=== PATIENT | male | born 1955 | race Caucasian/White ===

== ENCOUNTER 2019-06-02 09:38 | Day surgery (SDC) ==
--- NOTE | 2019-05-28 08:02 | EKG Report ---
Test Performed on : 05/28/2019 07:39:50 AM Test Reason : PAT Blood Pressure : / mmHG Vent. Rate : 075 BPM Atrial Rate : 075 BPM P-R Int : 202 ms QRS Dur : 092 ms QT Int : 386 ms P-R-T Axes : 060 069 069 degrees QTc Int : 431 ms Normal sinus rhythm. Normal ECG When compared with ECG of 03-JAN-2009 16:43, No significant change was found Confirmed by Liz TRIPATHI, Alejandro Silverman ([id number]) on 05/29/2019 7:41:22 AM
[2019-05-28 08:28] LABS: URINE SOURCE CLEAN CATCH
[2019-05-28 09:19] LABS: BASO# 0.02 X1000 (0.0-0.2); BASO% 0.3 % (0.0-0.8); EOS# 0.11 X1000 (0.0-0.7); EOS% 1.8 % (0.0-10.0); HEMATOCRIT 48.6 % (42.0-52.0); HEMOGLOBIN 15.8 g/dL (14.0-18.0); LYMPH# 1.94 X1000 (1.2-3.4); MCH 31.4 PG (27-31); MCHC 32.5 g/dL (33-37); MCV 96.6 FL (81-99); MONO# 0.53 X1000 (0.11-0.59); MONO% 8.7 % (1.7-9.3); MPV 11.4 FL (7.4-10.4); NEUT# 3.46 X1000 (1.4-6.5); NEUT% 57.2 % (42.2-75.2); PLT 164 X1000 (130-400); RBC 5.03 XMIL (4.7-6.1); RDW 13.4 % (11.5-14.5); WBC 6.06 X1000 (4.8-10.8)
[2019-05-28 09:27] LABS: BILIRUBIN URINE NEGATIVE (NEGATIVE); BLOOD URINE NEGATIVE (NEGATIVE); COLOR YELLOW; GLUCOSE URINE NEGATIVE (NEGATIVE); KETONE URINE NEGATIVE (NEGATIVE); LEUKOCYTES URINE NEGATIVE (NEGATIVE); NITRITE URINE NEGATIVE (NEGATIVE); PROTEIN URINE NEGATIVE (NEGATIVE); SP GRAVITY URINE 1.026; TURBIDITY URINE CLEAR (CLEAR); UROBILINOGEN URINE NORMAL (NORMAL)
[2019-05-28 09:31] LABS: UR EPITHELIAL CELLS <10 /HPF (<10); URINE BACTERIA NEGATIVE /HPF; URINE RBC <10 /HPF (<10); URINE WBC <10 /HPF (<10)
[2019-05-28 09:35] LABS: ALBUMIN 4.5 g/dL (3.5-5.0); CALCIUM 8.9 mg/dL (8.8-10.2); CREATININE 1.3 mg/dL (0.7-1.2); POTASSIUM 4.4 mmol/L (3.5-5.1)
[2019-05-28 09:43] LABS: HEMOGLOBIN A1C 5.8 % (4.8-6.0)
[2019-05-28 09:46] LABS: INR 0.98; PROTIME 13.1 Seconds (11.0-16.0)
[2019-05-28 09:47] LABS: PTT 29.3 Seconds (22.3-41.8)
[~2019-06-02 09:38] MED LIST: DIPRIVAN 1% ONE; FENTANYL ONE; ROBINUL ONE; VERSED ONE; XYLOCAINE-MPF 2% ONE
[2019-06-02] MEDS ORDERED: COLACE ONE (10:34)
[2019-06-02] MEDS ORDERED: PEPCID ONE (10:34)
[2019-06-02] MEDS ORDERED: LYRICA ONE (10:35)
[2019-06-02] MEDS ORDERED: KEFZOL 1 GM/D5W 2 GM/100 ML IVPB ONE (10:35)
[2019-06-02] MEDS ORDERED: REGLAN ONE (10:35)
[2019-06-02] MEDS ORDERED: CELEBREX ONE (10:35)
[2019-06-02] MEDS ORDERED: LR 1,000 ML ONE (10:36)
[2019-06-02] MEDS ORDERED: DURAMORPH ONE (11:32)
[2019-06-02] MEDS ORDERED: TORADOL ONE ×2 (11:32→12:18)
[2019-06-02] MEDS ORDERED: SODIUM CHLORIDE 0.9% ONE (11:32)
[2019-06-02] MEDS ORDERED: MARCAINE 0.25% PF ONE (11:32)
[2019-06-02] MEDS ORDERED: EXPAREL 1.3% ONE (11:33)
[2019-06-02] MEDS ORDERED: OXYCONTIN PO ONE (11:43)
[2019-06-02] MEDS: VANCOMYCIN ONE ×2 (11:59→14:07)
[2019-06-02] MEDS ORDERED: DECADRON ONE (12:18)
[2019-06-02] MEDS ORDERED: OFIRMEV 1000 MG/ISOTONIC SOLN 1,000 MG/100 ML BOTTLE ONE (12:18)
[2019-06-02] MEDS: CYKLOKAPRON 1,000 MG/NS 2,000 MG/200 ML IVPB ONE ×2 (12:20→14:00)
[2019-06-02] MEDS ORDERED: XYLOCAINE-MPF 2% ONE (13:13)
[2019-06-02] MEDS ORDERED: DIPRIVAN 1% ONE ×3 (13:13→14:19)
[2019-06-02] MEDS ORDERED: VERSED ONE (13:19)
[2019-06-02] MEDS ORDERED: ZOFRAN PO PRN (15:11)
[2019-06-02] MEDS ORDERED: OXY IR PO PRN (15:11)
[2019-06-02] MEDS ORDERED: MILK OF MAGNESIA PO PRN (15:11)
[2019-06-02] MEDS ORDERED: MORPHINE IV PRN (15:11)
[2019-06-02] MEDS ORDERED: VANCOMYCIN 1 GM/NS 1 GM/250 ML IVPB IV ONE (15:11)
[2019-06-02] MEDS ORDERED: ZOFRAN IV PRN (15:11)
[2019-06-02] MEDS ORDERED: KEFZOL 1 GM/D5W 1 GM/50 ML IVPB IV SCH (15:15)
[2019-06-02 15:50] LABS: URINE SOURCE CATH
--- NOTE | 2019-06-02 15:54 | Diag Imaging Result Doc PS360 ---
KNEE 3 VIEWS RIGHT - 06/02/2019 INDICATION: Postop TECHNIQUE: Three views COMPARISON: None FINDINGS: There has been right total knee arthroplasty. Alignment is anatomic. No hardware fracture or loosening. IMPRESSION: No complication. Electronically signed by Jin Najera 06/02/2019 3:51 PM
[2019-06-02 15:59] LABS: BILIRUBIN URINE NEGATIVE (NEGATIVE); BLOOD URINE NEGATIVE (NEGATIVE); COLOR YELLOW; GLUCOSE URINE NEGATIVE (NEGATIVE); KETONE URINE NEGATIVE (NEGATIVE); LEUKOCYTES URINE NEGATIVE (NEGATIVE); NITRITE URINE NEGATIVE (NEGATIVE); PROTEIN URINE NEGATIVE (NEGATIVE); SP GRAVITY URINE 1.016; TURBIDITY URINE CLEAR (CLEAR); UROBILINOGEN URINE NORMAL (NORMAL)
[2019-06-02] MEDS ORDERED: NS 1,000 ML IV SCH (16:00)
[2019-06-02 16:01] LABS: UR EPITHELIAL CELLS <10 /HPF (<10); URINE BACTERIA NEGATIVE /HPF; URINE RBC <10 /HPF (<10); URINE WBC <10 /HPF (<10)
[2019-06-02] MEDS ORDERED: EXENATIDE MICROSPHERES INJ SCH (16:30)
[2019-06-02] MEDS: TYLENOL PO SCH ×2 (17:29→18:40)
[2019-06-02] MEDS: OXY IR PO PRN (17:29)
--- NOTE | 2019-06-02 19:26 | OPERATIVE NOTE ---
PROCEDURE DATE: 06/02/2019 PREOPERATIVE DIAGNOSIS: Right knee osteoarthritis. POSTOPERATIVE DIAGNOSIS: Right knee osteoarthritis. PROCEDURE: Right total knee arthroplasty. SURGEON: Dr. Frank Jason. DIP GUIDER STOVES: 1. Tony Martinez, Nurse practitioner, whose help was necessary for retraction and placement of implants. 2. Slick Godinez RN. ANESTHESIA: Spinal. COMPLICATIONS: None. SPECIMENS: None. DRAINS: None. BLOOD LOSS: 30 mL. IMPLANTS: Nona Persona total knee arthroplasty system, with a size 10 cemented cruciate retaining femur, a size G right cemented tibial base plate, with a 10 mm cruciate retaining polyethylene liner and a 35 mm patella. INDICATIONS FOR PROCEDURE: Mr. Faust is a 63-year-old gentleman who has been seen and followed in clinic for complaints of right knee pain. He tried and failed conservative modalities and wished to proceed with total joint arthroplasty. Risks, benefits, and alternative therapies were discussed with patient regarding surgery. Risks of surgery include, but are not limited to, risks of bleeding, infection, damage to nerves and vessels around the area, continued pain following surgery, and need for revision surgery. There is also risk of anesthesia, including blood clot, stroke, heart attack, even . Patient understands these risks. All questions were answered. Informed consent was obtained. PROCEDURE IN DETAIL: Mr. Faust was identified by wrist band and greeted in preop holding area on 06/02/2019. His right lower extremity, which was the operative site, was marked with indelible ink per [facility] protocol. Following this, the patient was transferred back to the operating room for surgery. Upon entering the OR, he was transferred in supine position on the Skytron table. All bony prominences were well padded. Spinal anesthetic was then introduced. At this time, the patient was then placed into the supine position. Again, all bony problems were well padded. The right lower extremity was 'then prepped and draped in routine sterile fashion. Formal time-out was performed, confirming correct patient, procedure, operative site, operative side, administration of perioperative antibiotics. Everyone was in agreement. The patient received 2 g Ancef prior to incision. He also received 1 g of tranexamic acid prior to incision. Esmarch was used to exsanguinate the right lower extremity and tourniquet was elevated to 300 mmHg. Total tourniquet time was 85 minutes. Once this was done, a 10 blade knife was used to make a standard longitudinal midline incision over the knee. Knife was used to dissect through skin and subcutaneous tissue down to patellar retinaculum. Fat overlying the quad tendon and vastus medialis obliquus was incised so that the muscle belly of VMO and quad tendon were visualized. Once full-thickness skin flaps were developed, we then made our medial parapatellar arthrotomy with the 10 blade knife, going about 4 mm lateral to the medial edge of the quad tendon. After we made our arthrotomy, a knife was used to remove the patellar fat pad as well as release the lateral plica bands. A partial medial release was used, taking superficial MCL off along the joint line around to the midline of the tibia medially. Once this was done, we then everted the patella and flexed the knee up. A right angle retractor was placed in the medial compartment, retracting VMO and medial patellar retinaculum off the femoral condyle. A Hohmann retractor was then placed laterally. At this time, we had good exposure of the distal femur. A knife was used to remove the visible areas of the medial and lateral menisci as well as cut the ACL. At this time, we then used a big drill to enter the femoral canal in line with Whitesides line. The intramedullary distal femoral cutting guide was then placed, making sure it was set on the right knee, 5 degrees valgus, 10 mm resection. Once we were satisfied with position of this, it was then pinned in place and we made our distal femoral cut in routine fashion. Following this, the posterior referencing AP sizing guide was then placed. A marking pen was first used to draw the transepicondylar axis as well as Whitesides line. We then placed the AP sizing guide, making sure it was set to 3 degrees external rotation. Drill holes were then placed in the appropriate position. The femur measured to be a size 10. A size 10 all-in-one cutting block was then impacted into position. An Cedric wing was used to make sure no notching would take place. We then proceeded with making our distal femoral cuts, starting with the anterior and posterior condylar cuts followed by anterior and posterior chamfer cuts. Once this done, all-in-one cutting block was removed and osteotome was used to remove all bony fragments. At this time, we then turned our attention to the tibia. The extramedullary tibial cutting guide was placed around the malleoli of the ankle and the block was placed, taking 2 mm off the more affected medial side. Once this was done, it was then pinned in position. Drop za was used to ensure alignment of the cut, making sure that it lined with the tibialis anterior and the 2nd metatarsal. When we were satisfied with our cut, again it was pinned in position and our plateau cut was made. The knee was then brought into full extension and an extension block was placed. It was found to have significant tightness, so we went ahead and took an additional 4 mm off the tibia. Once this done, we then checked our flexion and extension gaps with the blocks in routine fashion. The knee was found to be pretty well balanced at this point. We did do a small PCL release off the lateral aspect of the medial femoral condyle as it had a small amount of tightness in flexion. Once this was done, we then used the tibial sizing guide and it was found to be a size G. Our size 10 femoral trial was impacted into position on the femur. Prior to placement of our femoral trial, a 3/4 inch curved osteotome was used to remove posterior condylar osteophytes off the femur. A rongeur and curette were then used to remove these. At this time, we then placed our femoral trial followed by placement of the tibial base plate and a 10 mm tibial poly, which were left in free float in order to switch box installer our rotation. The knee was then brought into full extension. The knee was found to come into full extension and had good stability on both varus and valgus stress in extension as well as 90 degrees of flexion. The PCL was found to be competent. At this time, we then turned our attention to the patella. Patella was measured and found to be 25 mm thick. The patellar clamp was then placed, taking 9 mm off the articular surface. Our cut was then made and a button trial was placed. We again measured this and it was found to be 25 mm, ensuring we did not overstuff the patella. At this time, patellar tracking was checked and found to track appropriately. We then used a Bovie to andriy our rotation of our tibial component. The femoral and patellar components were then removed, and our size D tibial trial was pinned into position. We then used the large reamer followed by the fin punch to lock in the rotation of our tibia. At this time, all trial components were removed. The knee was copiously irrigated with normal saline. 30 mL of our Exparel plus Toradol plus Duramorph and epinephrine injection was then injected into the posterior capsule, making sure to aspirate prior to injection in each position. Once this was done, Bovie was used to cauterize the posterior capsule as well as lateral geniculates. We then proceeded with irrigating all bone ends. Dry laps were then placed. At this time, all final implants were opened on the back table. Cement was mixed. We used BiomCytoSolv cement x2 batches with 1 g of vancomycin added. Once the cement was ready, we then proceeded with cementing of our implants, starting with our tibial base plate, followed by placement of the femur and 11 mm trial poly and lastly the patella. The cement was then allowed to set up. Two dry laps were placed in the knee and an Esmarch was used to wrap around the knee for compression. Tourniquet was then deflated once cement had hardened. Bovie was then used to obtain hemostasis. We had no obvious active bleeding. At this time, the knee was then again taken through range of motion. We took out the 1 mm rafa so that it was a size 10 poly and found to have full extension and good stability to varus and valgus stress, with no obvious mid flexion instability. We thus opened a final 10 mm cruciate retaining polyethylene liner. It was then impacted in position in routine fashion. Following this, we then injected the remaining 30 mL of Exparel cocktail around the anterior, medial, and lateral capsule. Our superficial skin injection was then injected in the subcutaneous tissue. At this time, the knee was again copiously irrigated with normal saline. There was no active bleeding, so a drain was not placed. We then proceeded with closure of arthrotomy site using #1 Vicryl suture,, followed by a V-Loc running Quill suture. The knee was taken through a range of motion, ensuring a good stable closure with no impingement. Patient had full motion from 0 to about 155 degrees of flexion. A 2-0 Vicryl suture was then used for subcutaneous tissue closure, followed by 4-0 Monocryl for skin closure. Dermabond Prineo dressing was then applied and allowed to dry. At this time, drapes were taken down. The patient was placed into a 4x4, ABD, sterile Webril, and Simeon wrap dressing from the foot up to the thigh. At this time, he was then woken up, transferred to his hospital stretcher, and taken to Recovery in stable condition. There were no acute complications during the procedure. All sponge and sharp counts were correct at the end of the procedure.
[2019-06-02] MEDS: KEFZOL 2 GM/D5W 2 GM/50 ML IVPB IV SCH (20:17)
[2019-06-02] MEDS: CELEBREX PO SCH (20:19)
[2019-06-02] MEDS: COLACE PO SCH (20:20)
[2019-06-02] MEDS: LYRICA PO SCH (20:20)
[2019-06-02] MEDS: PERIDEX MT SCH (20:20)
[2019-06-02] MEDS ORDERED: RESTORIL PO SCH (21:00)
[2019-06-02] MEDS ORDERED: GLUCOPHAGE XR PO SCH (21:00)
[2019-06-02] MEDS ORDERED: JANUVIA PO SCH (21:00)
[2019-06-02] MEDS ORDERED: PRINIVIL PO SCH (21:00)
[2019-06-03] MEDS: KEFZOL 2 GM/D5W 2 GM/50 ML IVPB IV SCH (04:26)
[2019-06-03] MEDS: TYLENOL PO SCH ×2 (06:34→06:48)
[2019-06-03 06:36] LABS: HEMATOCRIT 43.5 % (42.0-52.0); HEMOGLOBIN 14.9 g/dL (14.0-18.0)
[2019-06-03] MEDS: OXY IR PO PRN (06:48)
[2019-06-03 07:10] LABS: CREATININE 1.3 mg/dL (0.7-1.2); POTASSIUM 4.7 mmol/L (3.5-5.1)
[2019-06-03 07:57] VITALS: BP 109/60
[2019-06-03] MEDS ORDERED: DECADRON IV ONE (09:00)
[2019-06-03] MEDS ORDERED: ASPIRIN PO SCH (09:00)
[2019-06-03] MEDS ORDERED: PEPCID PO SCH (09:00)
[2019-06-03] MEDS ORDERED: ZYLOPRIM PO SCH (09:00)
[2019-06-03] MEDS ORDERED: CELEBREX PO SCH (09:00)
[2019-06-03] MEDS: CELEBREX PO SCH (11:43)
[2019-06-03] MEDS: COLACE PO SCH (11:43)
[2019-06-03] MEDS: PERIDEX MT SCH (11:43)
[2019-06-03] MEDS: LYRICA PO SCH (11:44)
--- NOTE | 2019-06-03 11:51 | ORTHOPAEDICS PROGRESS NOTE ---
DATE: 06/03/2019 SUBJECTIVE: No acute events overnight. Patient denies any pain in his knee. He is tolerating a diet. He got a good night's sleep. He has no complaints at this time. He is ready to work with physical therapy and go home. OBJECTIVE: Hematocrit 44. Sodium 136, potassium 4.7, chloride 101, carbon dioxide 21, BUN 29, creatinine 1.3, glucose 162.Extremities: Examination of right lower extremity shows surgical dressing to be clean, dry, and intact. Thigh and calf were soft and compressible. The patient is able to do straight leg raise and actively flex and extend his knee. Motor is intact. EHL, tibialis anterior, gastrocsoleus complex. Sensation intact to light touch L3-S1. Dorsalis pedis pulse palpable. IMAGING: AP and lateral of the right knee taken postoperatively in the PACU were reviewed demonstrating good position of implants and good alignment of the knee. The patient has retention of loose body that was encapsulated in the posterior capsule. ASSESSMENT: A 63-year-old male status post right total knee arthroplasty. Postoperative day 1. PLAN: 1. Patient will be weightbearing as tolerated right lower extremity. He should ambulate with Physical Therapy today with a rolling walker. 2. Aspirin 81 mg b.i.d. for DVT prophylaxis for the next 6 weeks. The patient will also wear GERBER hose during the day for the next 4 to 6 weeks. 3. Discontinue Mays catheter. 4. Pain control. 5. Disposition. Patient to be discharged home this afternoon after he meets physical therapy goals as long as he is urinating, tolerating a diet. His pain is well controlled on p.o. pain medication. I will see him back in clinic at [facility] in 2 weeks. We will get him started with outpatient physical therapy to be done at [facility] starting tomorrow. The patient is okay to take a shower tomorrow.
--- NOTE | 2019-06-06 05:33 | DISCHARGE SUMMARY ---
ADMISSION DATE: 06/02/2019 DISCHARGE DATE: 06/03/2019 ADMISSION DIAGNOSES: Right knee osteoarthritis. DISCHARGE DIAGNOSES: Right knee osteoarthritis. PROCEDURES PERFORMED: Right total knee arthroplasty done on 06/02/2019. CONSULTATIONS: None. COMPLICATIONS: None. BRIEF HOSPITAL COURSE: Mr. Faust is a 63-year-old gentleman who has been followed in clinic for complaints of right knee osteoarthritis. At the time, he failed conservative treatment modalities, and wished to proceed with total joint replacement. Risks, benefits, and alternative therapies were discussed with patient regarding surgery. All questions were answered. Informed consent was obtained. Patient presented to [facility] on 06/02/2019, undergoing the above procedure. There were no acute complications during surgery. Following surgery, he was transferred up to the floor for recovery. Patient did well having an uneventful night. On postoperative day 1, his pain was well controlled on p.o. pain medications. He was tolerating a diet, and he was urinating voluntarily. Physical Therapy worked with him, and he walked 1000 feet with no issues. He was thus ready to be discharged home. DISPOSITION: Discharged home. CONDITION: Stable. ACTIVITY: Patient is to be weightbearing as tolerated to the right lower extremity. He should work with physical therapy starting tomorrow on an outpatient basis on range of motion and gait training. MEDICATIONS: 1. Aspirin 81 mg b.i.d. for DVT prophylaxis. 2. Percocet. 3. Celebrex. 4. Zofran. 5. Colace. DISCHARGE INSTRUCTIONS: 1. Patient is to keep the surgical dressing clean, dry, and intact x48 hours. Following this, he can remove his dressing, take a shower, and wash the incision with soap and water. He should avoid any submerging in water or soaking in bath tub. 2. The patient should take his aspirin twice daily as instructed for DVT prophylaxis. 3. He should work with physical therapy on knee range of motion and gait training. 4. I will see him back in clinic in 2 weeks for wound check and follow-up appointment. 5. The patient should return to the ER with any acute onset chest pain, shortness of breath, fever, or greater than 101.5, or drainage from surgical incision.
[2019-06-09] MEDS ORDERED: VITAMIN D PO SCH (09:00)
== END 2019-06-03 12:08 | disposition home or self-care (01) ==
LOC: OR 09:38 → 4N 09:38 → OR 06-03 12:08
PROVIDERS: ATTEND Orthopaedic Surgery Sports Medicine